=== PATIENT | female | born 1990 | race American Indian/Alaskan Native ===

== ENCOUNTER 2018-02-20 23:02 | Emergency (ER) | payer MEDICAID, OTHER ==
[2018-02-21 00:14] LABS: Albumin 3.6 g/dL (3.9-5); BUN/Creatinine Ratio 24; Blood Urea Nitrogen 17 mg/dL (7-17); Calcium 9.1 mg/dL (8.4-10.2); Hemolysis Index 0
[2018-02-21 00:18] LABS: Alanine Aminotransferase < 5 units/L (7-56)
[2018-02-21 00:38] LABS: Hematocrit 26.9 % (30.3-42.9); Hemoglobin 9.3 gm/dl (10.1-14.3); Mean Corpuscular HGB Conc 35 % (30-34); Mean Corpuscular Hemoglobin 26 pg (28-32); Mean Corpuscular Volume 76 fl (79-97); Platelet Count 502 K/mm3 (140-440); Red Blood Count 3.55 M/mm3 (3.65-5.03); Red Cell Distribution Width 16.9 % (13.2-15.2)
[2018-02-21 03:19] LABS: Band Neutrophils # (Manual) 0.2 K/mm3; Basophils % (Manual) 0 % (0.0-1.8); Eosinophils % (Manual) 0 % (0.0-4.3); Total Cells Counted 100
[2018-02-21 03:20] LABS: Anisocytosis 1+; Hypochromasia 1+; Tear Drop Cells Few
[2018-02-21 03:21] LABS: Platelet Estimate Consistent w Auto
[2018-02-21] MEDS ORDERED: ATIVAN IV ONE (03:50)
[2018-02-21] MEDS ORDERED: NACL 0.9% 1000 ML 2,000 ML IV ONE (03:50)
[2018-02-21] MEDS ORDERED: SUBLIMAZE IV ONE (03:50)
[2018-02-21] MEDS ORDERED: ZOFRAN IV ONE (03:50)
[2018-02-21] MEDS ORDERED: TORADOL IV ONE (04:07)
[2018-02-21 04:08] VITALS: BP 126/71
--- NOTE | 2018-02-21 04:14 | Emergency Department Report ---
HPI - General Chief Complaint: Pain General Time Seen by Provider: 02/21/18 03:49 - HPI HPI: The patient is a 27-year-old female presents for evaluation of back and shoulder pain. The patient has a history of lupus and states that she has a long history of experiencing shoulder pain, back pain, and other joint pain secondary to her lupus. She reports constant aching pain of the upper back and shoulders 16 p.m. earlier tonight, 6 hours prior to my evaluation. She states that her pain has been nauseous in severity, exacerbated with movement, and improved at rest. The patient denies blunt trauma to the back, fall, fever, chills, night sweats, saddle anesthesia, paresthesias, numbness or tingling in the legs, leg weakness, urine or bowel incontinence or retention, difficulty ambulating, or other focal neurological deficits. The patient also denies redness or swelling to the back, IV drug use, history of cancer. ED Past Medical Hx - Past Medical History Hx Hypertension: No Hx Diabetes: No Hx Deep Vein Thrombosis: No Hx Renal Disease: No Hx Sickle Cell Disease: No Hx Seizures: No Hx Asthma: No Hx HIV: No - Social History Smoking Status: Never Smoker Substance Use Type: None - Medications Home Medications: Home Medications Medication Instructions Recorded Confirmed Last Taken Type No Known Home Medications [No 07/30/14 07/30/14 Unknown History Reported Home Medications] Cyclobenzaprine HCl [Flexeril 5 MG 5 mg PO Q8HR PRN #15 tab 02/21/18 Unknown Rx TAB] Ibuprofen [Motrin] 800 mg PO Q8HR PRN #15 tablet 02/21/18 Unknown Rx Prednisone [predniSONE 10 mg 10 mg PO .TAPER #1 tab.ds.pk 02/21/18 Unknown Rx (6-Day Pack, 21 Tabs)] ED Review of Systems ROS: Stated complaint: BODY PAIN Other details as noted in HPI Constitutional: denies: fever ENT: denies: throat or neck pain Respiratory: denies: cough, shortness of breath Cardiovascular: denies: chest pain Endocrine: denies unexplained weight loss or gain Gastrointestinal: denies: abdominal pain, nausea Genitourinary: denies: dysuria Musculoskeletal: reports back and shoulder pain denies: leg swelling Skin: denies: rash Neurological: denies: headache Hematological/Lymphatic: denies: easy bleeding or easy bruising Psych: denies sadness or hopelessness Physical Exam - Physical Exam Vital Signs: Vital Signs 02/20/18 02/20/18 02/21/18 23:14 23:30 04:07 Temperature 98.7 F 98.7 F 97.9 F Pulse Rate 114 H 114 H 92 H Respiratory 18 18 16 Rate Blood Pressure 117/68 117/68 Blood Pressure 126/71 [Right] O2 Sat by Pulse 99 99 97 Oximetry Physical Exam: General: well-nourished, well-developed, no acute distress Head: Normocephalic, atraumatic Eyes: normal sclera ENT: Mucous membranes are pale and dry Neck: No neck stiffness, no cervical adenopathy Respiratory: Breath sounds equal bilaterally, no wheezing, rales, or rhonchi Cardio: S1 and S2 present, no murmurs, rubs, gallops, capillary refill is delayed Abdomen: Normoactive bowel sounds, soft abdomen, no rigidity, no guarding or rebound tenderness Chest WALL/Back: No tenderness to palpation of the chest wall, no CVA tenderness with percussion Musc: Tenderness to palpation present to bilateral caudal medial trapezius, upper and mid thoracic paraspinal musculature, and bilateral shoulders, pain is elicited with passive or active range of motion of the bilateral shoulders, no midline cervical, thoracic, or lumbar tenderness overlying spinous process, no spinous step-off or obvious deformity, no pain with flexion at the hip, normal active range of motion at the hip intact, no spinous step-off or obvious deformity, ipsi-lateral and contralateral straight leg raise tests are negative. On extremity testing, compartments are soft and pliable, no obvious gross motor strength deficit, 5+ motor strength, including extension of the great toe bilaterally, no muscular atrophy, spasticity, fasciculations, or clonus, no obvious gross sensation deficit including web space between 1st and 2nd toes, reflexes 2+ & symmetric on DTR testing at the knee and ankle joints, distal pulses intact. Skin: No rash Neuro: no facial drooping, normal speech Psych: Normal affect ED Course Vital Signs 02/20/18 02/20/18 02/21/18 23:14 23:30 04:07 Temperature 98.7 F 98.7 F 97.9 F Pulse Rate 114 H 114 H 92 H Respiratory 18 18 16 Rate Blood Pressure 117/68 117/68 Blood Pressure 126/71 [Right] O2 Sat by Pulse 99 99 97 Oximetry ED Medical Decision Making - Lab Data Result diagrams: 02/20/18 23:36 02/20/18 23:36 - Medical Decision Making The patient was seen and examined by myself. The patient is placed on a cafeteria monitor and continuous pulse ox. On initial evaluation, the patient was found to be in no distress. EKG was negative for findings suggestive of acute cardiac infarct. The patient is given 1 L normal saline fluid bolus for treatment of her dehydration and tachycardia, and IV Toradol for treatment of her pain. Labs and imaging are obtained. Chest x-ray is negative for pneumothorax, focal consolidation, pulmonary vascular congestion, pleural effusion, or other obvious acute cardiopulmonary disease process. Lab results were non-concerning including levels of troponin, WBC. The patient is stable for discharge with outpatient follow-up. The patient is given follow-up and return instructions. The patient expressed understanding and agreed with the plan. The patient is discharged in stable condition. Critical care attestation.: If time is entered above; I have spent that time in minutes in the direct care of this critically ill patient, excluding procedure time. 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
== END 2018-02-21 05:28 | disposition home or self-care (01) ==
LOC: ED 23:02
DX: M79.1 Myalgia (principal); M54.5 Low back pain; L93.0 Discoid lupus erythematosus; E86.0 Dehydration
CPT/HCPCS: 36415; 80053; 85007; 85025; 96361; 96374; 96375; 99283; J1885; J2405; J7030